=== PATIENT | female | born 1945 | race Two or more races ===

== ENCOUNTER 2019-01-24 09:53 | Emergency (ER) | payer OTHER ==
[~2019-01-24] VITALS: Ht 154.9 cm; Wt 59.0 kg
[2019-01-24] MEDS ORDERED: VITAMIN C WIT1000 MG PO (10:14)
[2019-01-24] MEDS ORDERED: BIOTIN10 MG PO (10:14)
[2019-01-24] MEDS ORDERED: CALTRATE 600 +1 EACH PO (10:15)
[2019-01-24] MEDS ORDERED: FORTAMET500 MG PO (10:15)
[2019-01-24] MEDS ORDERED: CRESTOR10 MG PO (10:16)
[2019-01-24] MEDS ORDERED: ZESTRIL5 MG PO (10:16)
[2019-01-24] MEDS ORDERED: SYNTHROID100 MCG PO (10:16)
== END 2019-01-24 10:52 | disposition home or self-care (01) ==
LOC: ER 09:53
DX: E11.42 Type 2 diabetes mellitus with diabetic polyneuropathy (principal)